=== PATIENT | male | born 2000 | race Caucasian/White ===

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

== ENCOUNTER 2020-06-29 14:48 | Outpatient (CLI) | payer BC, SELFPAY ==
--- NOTE | 2020-06-29 15:04 | XR_ITS ---
WS: [id number] CERVICAL SPINE 5 VIEWS HISTORY: CERVICALGIA, RADICULOPATHY, CERVICAL REGION COMPARISON: None available. TECHNIQUE: AP, and lateral radiographs. Lateral in neutral, flexion and extension. Mild straightening of the normal cervical alignment. No instability with flexion and extension. There is mild movement of the C2, C3 and C4 vertebral bodies but this is probably due to previous signific ant hyperflexion and hyperextension. Disc spaces and vertebral body heights are well preserved. Neura l foramina are widely patent with no osteophytes or narrowing. No soft tissue abnormality. Lateral masses of C1 and C2 are aligned and the odontoid process is intact. XR/XR cervical spine 4-5V [id number] IMPRESSION: 1. No significant cervical instability and no fracture. 2. Patient demonstrates increased hypermobility during flexion and extension. No instability.
== END 2020-06-29 14:49 | disposition home or self-care (01) ==
LOC: RADWPI 14:52
PROVIDERS: Visit Provider Family Medicine
DX: M54.12 Radiculopathy, cervical region (principal); M54.2 Cervicalgia
CPT/HCPCS: 72050